=== PATIENT | male | born 1950 | race Caucasian/White ===

== ENCOUNTER 2019-04-02 18:55 | Inpatient (IN) | payer OTHER, MEDICARE ==
--- NOTE | 2019-04-02 20:24 | PDOC ---
Documentation entered by Elizabeth Loco SCRIBE, acting as scribe for Hadley Cruz MD. Hadley Cruz MD: This documentation has been prepared by the scribe, Elizabeth Loco SCRIBE, under my direction and personally reviewed by me in its entirety. I confirm that the documentation accurately reflects all work, treatment, procedures, and medical decision making performed by me. History of Present Illness - General Chief Complaint: Lightheaded Stated Complaint: DIZZY AFTER TAKING SEPTRA DS History Source: Patient Exam Limitations: No Limitations - History of Present Illness Initial Comments: 04/02/19 20:20 The patient is a 69-year-old male with no reported past medical history who presents to the emergency department with dizziness weakness. The patient is s/ p a cystoscopy two days ago with Dr. Gaitan at [facility] for evaluation of hematuria. The patient reports he was prescribed Bactrim after the procedure and was discharged home. Today, patient reports he has had lightheadedness and weakness with difficulty standing. The patients neighbor is at the bedside, who reports the patient seems slow but is otherwise behaving at his baseline. The patient reports associated symptoms of feeling warm this afternoon but did not take his temperature at home. Pt denies weakness/numbness in any extremity, denies PICKARD. Denies CP/SOB. Denies N /V/D. Allergies: bacitracin Surgical history: prostatectomy (10 years ago). Urologist: Dr. Gaitan Past History - Past Medical History Allergies/Adverse Reactions: Allergies Allergy/AdvReac Type Severity Reaction Status Date / Time bacitracin Allergy Intermediate Rash Verified 04/02/19 19:00 Home Medications: Ambulatory Orders Sulfamethoxazole/Trimethoprim [Sulfamethoxazole-Tmp Ds Tablet] 1 tab PO BID Review of Systems - Review of Systems Able to Perform ROS?: Yes Comments:: 04/02/19 20:21 GENERAL/CONSTITUTIONAL: No fever or chills. + weakness. HEAD, EYES, EARS, NOSE AND THROAT: No ear pain or discharge. No sore throat. CARDIOVASCULAR: +lightheadedness, No chest pain, no shortness of breath, no loss of consciousness RESPIRATORY: No cough, wheezing, or hemoptysis. GASTROINTESTINAL: No nausea, vomiting, diarrhea or constipation. GENITOURINARY: No dysuria, frequency, or change in urination. MUSCULOSKELETAL: No joint or muscle swelling or pain. No neck or back pain. SKIN: No rash NEUROLOGIC: No vertigo, no change in strength/sensation. ENDOCRINE: No increased thirst. No abnormal weight change. HEMATOLOGIC/LYMPHATIC: No anemia, easy bleeding, or history of blood clots. ALLERGIC/IMMUNOLOGIC: No hives or skin allergy. *Physical Exam - Physical Exam 04/02/19 20:23 GENERAL: Awake, alert, and fully oriented, in no acute distress. HEAD: No signs of trauma EYES: PERRLA, EOMI, sclera anicteric, conjunctiva clear ENT: Auricles normal inspection, hearing grossly normal, nares patent, oropharynx clear without exudates. Moist mucosa NECK: Nontender, no stepoffs, Normal ROM, supple, no lymphadenopathy, JVD, or masses LUNGS: Breath sounds equal, clear to auscultation bilaterally. No wheezes, and no crackles HEART: Regular rate and rhythm, normal S1 and S2, no murmurs, rubs or gallops ABDOMEN: Soft, nontender, normoactive bowel sounds. No guarding, no rebound. No masses EXTREMITIES: Normal range of motion, no edema. No clubbing or cyanosis. No cords , erythema, or tenderness NEUROLOGICAL: Cranial nerves II through XII intact. 5/5 strength and sensation in all extremities, Normal speech, normal gait, normal cerebellar function SKIN: Warm, Dry, normal turgor, no rashes or lesions noted. ED Treatment Course - LABORATORY CBC & Chemistry Diagram: 04/02/19 20:15 04/02/19 20:15 Medical Decision Making - Medical Decision Making 04/02/19 20:30 69 M with subjective fever, weakness, lightheadedness after cystoscopy 2 days ago. Pt with borderline temp and mild tachycardia. Suspect UTI. - Labs - UA, UCx Discharge - Discharge Information Problems reviewed: Yes Clinical Impression/Diagnosis: UTI (urinary tract infection) Condition: Stable - Admission Yes - Follow up/Referral Referrals: Eula Kapadia MD [Primary Care Provider] - - Patient Discharge Instructions - Post Discharge Activity
[2019-04-02 20:37] LABS: ALBUMIN 3.7 g/dl (3.4-5.0); BILIRUBIN,TOTAL 0.7 mg/dl (0.2-1); CALCIUM 8.8 mg/dl (8.5-10); CREATININE 1.2 mg/dl (0.55-1.3); POTASSIUM 3.8 mmol/L (3.5-5.1); TOT PROT 6.6 g/dl (6.4-8.2)
[2019-04-02 20:39] LABS: HEMATOCRIT 37.3 % (35.4-49); HEMOGLOBIN 11.8 GM/dl (11.7-16.9); MCH 22.2 pg (25.7-33.7); MCHC 31.7 g/dl (32.0-35.9); MEAN CELL VOLUME 70.2 fl (80-96); MEAN PLT VOLUME 8.3 fl (7.5-11.1); PLATELET COUNT 274 K/MM3 (134-434); RBC 5.31 M/mm3 (4.00-5.60); RDW 14.2 % (11.9-15.9); WHITE BLOOD COUNT 13.5 K/mm3 (4.0-10.8)
[2019-04-02] MEDS ORDERED: SODIUM CHLORIDE 1,000 ML IV STA (20:42)
[2019-04-02] MEDS ORDERED: CEFTRIAXONE 1,000 MG in DEXTROSE 5%-WATER - 50 ML IVPB ONE (20:42)
[2019-04-02] MEDS ORDERED: cefTRIAXone SODIUM 1 GM VIAL ONE (20:48)
--- NOTE | 2019-04-02 21:55 | HP ---
CHIEF COMPLAINT: Weakness Urology: Dr. Gaitan, [place] HISTORY OF PRESENT ILLNESS: The patient is a 69-year-old male with no reported past medical history who presents to the emergency department with dizziness and weakness. The patient underwent cystoscopy two days ago with Dr. Gaitan at [facility] for evaluation of hematuria. He was prescribed Bactrim after the procedure and was discharged home. Today, patient reports he has had lightheadedness and weakness with difficulty standing. He felt warm this afternoon but did not take his temperature. ER course was notable for: (1) WBC 13.5 (2) Na 129 (3) NS x 1L; ceftriaxone x 1 Recent Travel: No PAST MEDICAL HISTORY: None reported PAST SURGICAL HISTORY: Cystoscopy 03/31/19 Prostatectomy x 10 years Social History: lives alone Smoking: no Alcohol: no Drugs: no Allergies bacitracin Allergy (Intermediate, Verified 04/02/19 19:00) Rash HOME MEDICATIONS: Home Medications Medication Instructions Recorded Sulfamethoxazole/Trimethoprim 1 tab PO BID 04/02/19 [Sulfamethoxazole-Tmp Ds Tablet] REVIEW OF SYSTEMS CONSTITUTIONAL: +subjective fever, generalized weakness Absent: chills, diaphoresis, loss of appetite, weight change HEENT: Absent: rhinorrhea, nasal congestion, throat pain, throat swelling, difficulty swallowing, mouth swelling, ear pain, eye pain, visual changes CARDIOVASCULAR: Absent: chest pain, syncope, palpitations, irregular heart rate, lightheadedness , peripheral edema RESPIRATORY: Absent: cough, shortness of breath, dyspnea with exertion, orthopnea, wheezing, stridor, hemoptysis GASTROINTESTINAL: Absent: abdominal pain, abdominal distension, nausea, vomiting, diarrhea, constipation, melena, hematochezia GENITOURINARY: +hematuria Absent: dysuria, frequency, urgency, hesitancy, hematuria, flank pain, genital pain MUSCULOSKELETAL: Absent: myalgia, arthralgia, joint swelling, back pain, neck pain SKIN: Absent: rash, itching, pallor HEMATOLOGIC/IMMUNOLOGIC: Absent: easy bleeding, easy bruising, lymphadenopathy, frequent infections ENDOCRINE: Absent: unexplained weight gain, unexplained weight loss, heat intolerance, cold intolerance NEUROLOGIC: Absent: headache, focal weakness or paresthesias, dizziness, unsteady gait, seizure, mental status changes, bladder or bowel incontinence PSYCHIATRIC: Absent: anxiety, depression, suicidal or homicidal ideation, hallucinations. PHYSICAL EXAMINATION Vital Signs - 24 hr 01/29/20 18:56 Temperature 99.2 F Pulse Rate 100 H Respiratory 18 Rate Blood Pressure 103/70 O2 Sat by Pulse 100 Oximetry (%) GENERAL: Awake, alert, and fully oriented, in no acute distress. HEAD: Normal with no signs of trauma. EYES: Pupils equal, round and reactive to light, extraocular movements intact, sclera anicteric, conjunctiva clear. LUNGS: Breath sounds equal, clear to auscultation bilaterally. No wheezes, and no crackles. No accessory muscle use. HEART: Regular rate and rhythm, normal S1 and S2 ABDOMEN: Soft, nontender, not distended MUSCULOSKELETAL: Normal range of motion at all joints. No bony deformities or tenderness. No CVA tenderness. UPPER EXTREMITIES: 2+ pulses, warm, well-perfused. No cyanosis. No clubbing. No peripheral edema. LOWER EXTREMITIES: 2+ pulses, warm, well-perfused. No calf tenderness. No peripheral edema. NEUROLOGICAL: Cranial nerves II-XII intact. Normal speech. Laboratory Results - last 24 hr 04/02/19 04/02/19 04/02/19 20:00 20:15 20:15 WBC 13.5 H RBC 5.31 Hgb 11.8 Hct 37.3 MCV 70.2 L MCH 22.2 L MCHC 31.7 L RDW 14.2 Plt Count 274 MPV 8.3 Absolute Neuts (auto) 12.9 Neutrophils % No Result Required. Lymphocytes % No Result Required. Sodium 129 L Potassium 3.8 Chloride 94 L Carbon Dioxide 24 Anion Gap 11 BUN 27.0 H Creatinine 1.2 Est GFR (CKD-EPI)AfAm 70.09 Est GFR (CKD-EPI)NonAf 60.47 Random Glucose 132 H Calcium 8.8 Total Bilirubin 0.7 AST 13 L ALT 27 Alkaline Phosphatase 51 Total Protein 6.6 Albumin 3.7 Urine Color Yellow Urine Appearance Clear Urine pH 5.5 Urine Protein 1+ H Urine Glucose (UA) Negative Urine Ketones Trace Urine Blood 2+ H Urine Nitrite Negative Urine Bilirubin Negative Urine Urobilinogen 0.2 Ur Leukocyte Esterase Negative ASSESSMENT/PLAN: 69-year-old male with no reported significant PMH, admitted for sepsis secondary to UTI and hyponatremia. Sepsis secondary to UTI --p100, WBC 13.5, pyuria in setting of cystoscopy x 2 days --ceftriaxone (day #1) --fluid resuscitated 1L in ED, continue IV fluids --lactic acid pending --cultures pending Hyponatremia --Na 129 on admission --IV fluids FEN Fluids: NS@100mL/hr Electrolytes: replete as indicated Nutrition: regular diet DVT prophylaxis: subq heparin Physical therapy Dispo: continues to require inpatient care. Full code. Visit type - Emergency Visit Emergency Visit: Yes ED Registration Date: 04/02/19 Care time: The patient presented to the Emergency Department on the above date and was hospitalized for further evaluation of their emergent condition. - New Patient This patient is new to me today: Yes Date on this admission: 04/04/19 - Critical Care Critical Care patient: No
[2019-04-02 22:09] LABS: ANISOCYTOSIS 1+; PLATELET ESTIMATE ADEQUATE
[2019-04-02] MEDS ORDERED: SODIUM CHLORIDE 1,000 ML IV SCH ×2 (22:30→22:40)
[2019-04-03 00:13] VITALS: BMI 17.9
--- NOTE | 2019-04-03 07:31 | PN ---
Physical Exam: SUBJECTIVE: Patient seen and examined OBJECTIVE: Vital Signs Period Temp Pulse Resp BP Sys/Obrien Pulse Ox Last 24 Hr 97.9 F-99.8 F 88-106 16-18 95-114/52-70 67-100 GENERAL: Awake, alert, and fully oriented, in no acute distress. LUNGS: Breath sounds equal, clear to auscultation bilaterally. No wheezes, and no crackles. No accessory muscle use. HEART: Regular rate and rhythm, normal S1 and S2 ABDOMEN: Soft, nontender, not distended MUSCULOSKELETAL: Normal range of motion at all joints. No bony deformities or tenderness. No CVA tenderness. UPPER EXTREMITIES: 2+ pulses, warm, well-perfused. No cyanosis. No clubbing. No peripheral edema. LOWER EXTREMITIES: 2+ pulses, warm, well-perfused. No calf tenderness. No peripheral edema. NEUROLOGICAL: Cranial nerves II-XII intact. Normal speech. SKIN: Psoriatic plaques on scalp Laboratory Results - last 24 hr 04/02/19 04/02/19 04/02/19 20:00 20:15 20:15 WBC 13.5 H RBC 5.31 Hgb 11.8 Hct 37.3 MCV 70.2 L MCH 22.2 L MCHC 31.7 L RDW 14.2 Plt Count 274 MPV 8.3 Absolute Neuts (auto) 12.9 Neutrophils % No Result Required. Neutrophils % (Manual) 94.0 H* Lymphocytes % No Result Required. Lymphocytes % (Manual) 3.0 L Monocytes % (Manual) 2 L Eosinophils % (Manual) 1.0 Hypochromia 2+ Platelet Estimate Adequate Anisocytosis 1+ Microcytosis 1+ Sodium 129 L Potassium 3.8 Chloride 94 L Carbon Dioxide 24 Anion Gap 11 BUN 27.0 H Creatinine 1.2 Est GFR (CKD-EPI)AfAm 70.09 Est GFR (CKD-EPI)NonAf 60.47 Random Glucose 132 H Lactic Acid Calcium 8.8 Total Bilirubin 0.7 AST 13 L ALT 27 Alkaline Phosphatase 51 Total Protein 6.6 Albumin 3.7 Urine Color Yellow Urine Appearance Clear Urine pH 5.5 Urine Protein 1+ H Urine Glucose (UA) Negative Urine Ketones Trace Urine Blood 2+ H Urine Nitrite Negative Urine Bilirubin Negative Urine Urobilinogen 0.2 Ur Leukocyte Esterase Negative Urine RBC 15-30 Urine WBC 2-5 Urine Bacteria Few 04/03/19 00:05 WBC RBC Hgb Hct MCV MCH MCHC RDW Plt Count MPV Absolute Neuts (auto) Neutrophils % Neutrophils % (Manual) Lymphocytes % Lymphocytes % (Manual) Monocytes % (Manual) Eosinophils % (Manual) Hypochromia Platelet Estimate Anisocytosis Microcytosis Sodium Potassium Chloride Carbon Dioxide Anion Gap BUN Creatinine Est GFR (CKD-EPI)AfAm Est GFR (CKD-EPI)NonAf Random Glucose Lactic Acid 2.8 H* Calcium Total Bilirubin AST ALT Alkaline Phosphatase Total Protein Albumin Urine Color Urine Appearance Urine pH Urine Protein Urine Glucose (UA) Urine Ketones Urine Blood Urine Nitrite Urine Bilirubin Urine Urobilinogen Ur Leukocyte Esterase Urine RBC Urine WBC Urine Bacteria Active Medications Generic Name Dose Route Start Last Admin Trade Name Freq PRN Reason Stop Dose Admin Heparin Sodium (Porcine) 5,000 unit 04/03/19 10:00 Heparin - SQ BID LOUIS Sodium Chloride 1,000 mls @ 100 mls/hr 04/02/19 22:40 04/02/19 22:57 Normal Saline - IV 100 mls/hr ASDIR LOUIS Administration Ceftriaxone Sodium 50 mls @ 100 mls/hr 04/03/19 10:00 Ceftriaxone 1 [id number] Bag IVPB DAILY LOUIS Protocol ASSESSMENT/PLAN: 69-year-old male with no reported significant PMH, admitted for sepsis secondary to UTI and hyponatremia. Severe sepsis secondary to UTI --p100, WBC 13.5, lactic acid 2.8, pyuria in setting of cystoscopy x 2 days - -present on admission --leukocytosis now resolved, afebrile, lactic acid wnl --ceftriaxone (day #2) Hyponatremia --improved FEN Fluids: NS@100mL/hr Electrolytes: replete as indicated Nutrition: regular diet DVT prophylaxis: subq heparin Physical therapy Dispo: continues to require inpatient care. Full code. Visit type - Emergency Visit Emergency Visit: Yes ED Registration Date: 04/02/19 Care time: The patient presented to the Emergency Department on the above date and was hospitalized for further evaluation of their emergent condition. - New Patient This patient is new to me today: No - Critical Care Critical Care patient: No
[2019-04-03 08:23] LABS: ALBUMIN 3.1 g/dl (3.4-5.0); BILIRUBIN,TOTAL 0.9 mg/dl (0.2-1); CALCIUM 8.1 mg/dl (8.5-10); CREATININE 0.8 mg/dl (0.55-1.3); MAGNESIUM 1.8 mg/dL (1.8-2.4); POTASSIUM 3.7 mmol/L (3.5-5.1); TOT PROT 5.4 g/dl (6.4-8.2)
[2019-04-03 08:25] LABS: BASO % 0.3 % (0-2.0); EOS % 1.2 % (0-4.5); HEMATOCRIT 33.9 % (35.4-49); HEMOGLOBIN 10.9 GM/dl (11.7-16.9); LYMPH % 5.6 % (8-40); MCH 22.9 pg (25.7-33.7); MCHC 32.1 g/dl (32.0-35.9); MEAN CELL VOLUME 71.4 fl (80-96); MEAN PLT VOLUME 8.7 fl (7.5-11.1); MONO % 6.7 % (3.8-10.2); NEUT % 86.2 % (42.8-82.8); PLATELET COUNT 224 K/MM3 (134-434); RBC 4.75 M/mm3 (4.00-5.60); RDW 14.3 % (11.9-15.9); WHITE BLOOD COUNT 9.8 K/mm3 (4.0-10.8)
[2019-04-03] MEDS ORDERED: CEFTRIAXONE 1 GM in DEXTROSE 5%-WATER - 50 ML IVPB SCH (10:00)
[2019-04-03] MEDS: HEPARIN NA (PORCINE) 5,000 UNITS/ML 1ML VIAL SQ SCH ×2 (10:00→21:17)
[2019-04-03] MEDS: CEFTRIAXONE 1 G/50 ML PREMIX 50 ML IVPB SCH (10:20)
--- NOTE | 2019-04-03 12:43 | EKG ---
Test Reason : Blood Pressure : / mmHG Vent. Rate : 088 BPM Atrial Rate : 088 BPM P-R Int : 176 ms QRS Dur : 108 ms QT Int : 374 ms P-R-T Axes : 027 -11 031 degrees QTc Int : 452 ms NORMAL SINUS RHYTHM INCOMPLETE LEFT BUNDLE BRANCH BLOCK BORDERLINE ECG NO PREVIOUS ECGS AVAILABLE Confirmed by PRIYANKA MARTINEZ MD ([id number]) on 04/03/2019 12:42:41 PM Referred By: NC Confirmed By:PRIYANKA MARTINEZ MD
[2019-04-04 06:41] VITALS: BP 111/56; PULSE 96; TEMP 97.8
[2019-04-04 07:44] LABS: BASO % 0.4 % (0-2.0); HEMATOCRIT 37.9 % (35.4-49); HEMOGLOBIN 11.7 GM/dl (11.7-16.9); LYMPH % 15.8 % (8-40); MCH 21.9 pg (25.7-33.7); MCHC 30.8 g/dl (32.0-35.9); MEAN PLT VOLUME 8.6 fl (7.5-11.1); MONO % 11.2 % (3.8-10.2); NEUT % 66.6 % (42.8-82.8); PLATELET COUNT 237 K/MM3 (134-434); RBC 5.33 M/mm3 (4.00-5.60); RDW 14.6 % (11.9-15.9); WHITE BLOOD COUNT 6.3 K/mm3 (4.0-10.8)
--- NOTE | 2019-04-04 08:26 | DS ---
Physical Exam: SUBJECTIVE: Patient seen and examined OBJECTIVE: Vital Signs Period Temp Pulse Resp BP Sys/Obrien Pulse Ox Last 24 Hr 97.8 F-99.5 F 87-102 16-19 101-115/54-69 95-99 PHYSICAL EXAM GENERAL: Awake, alert, and fully oriented, in no acute distress. LUNGS: Breath sounds equal, clear to auscultation bilaterally. No wheezes, and no crackles. No accessory muscle use. HEART: Regular rate and rhythm, normal S1 and S2 ABDOMEN: Soft, nontender, not distended MUSCULOSKELETAL: Normal range of motion at all joints. No bony deformities or tenderness. No CVA tenderness. UPPER EXTREMITIES: 2+ pulses, warm, well-perfused. No cyanosis. No clubbing. No peripheral edema. LOWER EXTREMITIES: 2+ pulses, warm, well-perfused. No calf tenderness. No peripheral edema. NEUROLOGICAL: Cranial nerves II-XII intact. Normal speech. SKIN: Psoriatic plaques on scalp LABS Laboratory Results - last 24 hr 04/03/19 04/03/19 04/03/19 07:15 07:29 07:29 WBC 9.8 RBC 4.75 Hgb 10.9 L Hct 33.9 L MCV 71.4 L MCH 22.9 L MCHC 32.1 RDW 14.3 Plt Count 224 MPV 8.7 Absolute Neuts (auto) 8.5 Neutrophils % 86.2 H Lymphocytes % 5.6 L Monocytes % 6.7 Eosinophils % 1.2 Basophils % 0.3 Sodium 133 L Potassium 3.7 Chloride 104 Carbon Dioxide 23 Anion Gap 6 L BUN 20.0 H Creatinine 0.8 Est GFR (CKD-EPI)AfAm 104.17 Est GFR (CKD-EPI)NonAf 89.88 Random Glucose 102 Lactic Acid 1.1 Calcium 8.1 L Magnesium 1.8 Total Bilirubin 0.9 AST 16 ALT 22 Alkaline Phosphatase 45 Total Protein 5.4 L Albumin 3.1 L 04/04/19 04/04/19 06:59 06:59 WBC 6.3 RBC 5.33 Hgb 11.7 Hct 37.9 MCV 71.0 L MCH 21.9 L MCHC 30.8 L RDW 14.6 Plt Count 237 MPV 8.6 Absolute Neuts (auto) 4.2 Neutrophils % 66.6 D Lymphocytes % 15.8 D Monocytes % 11.2 H Eosinophils % 6.0 H D Basophils % 0.4 Sodium Potassium Chloride Carbon Dioxide Anion Gap BUN Creatinine Est GFR (CKD-EPI)AfAm Est GFR (CKD-EPI)NonAf Random Glucose Lactic Acid Calcium Magnesium 1.8 Total Bilirubin AST ALT Alkaline Phosphatase Total Protein Albumin HOSPITAL COURSE: Date of Admission:04/02/19 Date of Discharge: 04/04/19 Pre hospital course The patient is a 69-year-old male with no reported past medical history who presents to the emergency department with dizziness and weakness. The patient underwent cystoscopy two days ago with Dr. Gaitan at [place] for evaluation of hematuria. He was prescribed Bactrim after the procedure and was discharged home. Today, patient reports he has had lightheadedness and weakness with difficulty standing. He felt warm this afternoon but did not take his temperature. ER course (1) WBC 13.5 (2) Na 129 (3) NS x 1L; ceftriaxone x 1 Subsequent hospital course 69-year-old male with no reported significant PMH, admitted for sepsis secondary to UTI and hyponatremia. Severe sepsis secondary to UTI --p100, WBC 13.5, lactic acid 2.8, pyuria in setting of cystoscopy x 2 days - -present on admission --treated with ceftriaxone x 3 days, discharged on augmentin to complete 10 days of treatment Hyponatremia --resolved after IV fluids Minutes to complete discharge: 35 Discharge Summary Problems reviewed: Yes Reason For Visit: URINARY TRACT INFECTION. Condition: Critical - Instructions Diet, Activity, Other Instructions: A prescription has been sent to your pharmacy for augmentin. Take this medication as directed and be sure to finish all the medication. You should follow up with your primary care provider, or with your urologist, within one week of your discharge. Return to the emergency department for any new or worsening symptoms. Referrals: Eula Kapadia MD [Primary Care Provider] - Disposition: HOME - Home Medications Comprehensive Discharge Medication List: Ambulatory Orders Sulfamethoxazole/Trimethoprim [Sulfamethoxazole-Tmp Ds Tablet] 1 tab PO BID This patient is new to me today: No Emergency Visit: Yes ED Registration Date: 04/02/19 Care time: The patient presented to the Emergency Department on the above date and was hospitalized for further evaluation of their emergent condition. Critical Care patient: No - Discharge Referral Referred to [facility] Med P.C.: No
[2019-04-04] MEDS: CEFTRIAXONE 1 G/50 ML PREMIX 50 ML IVPB SCH (09:10)
[2019-04-04] MEDS: HEPARIN NA (PORCINE) 5,000 UNITS/ML 1ML VIAL SQ SCH (09:10)
== END 2019-04-04 12:24 | disposition home or self-care (01) | DRG 872 ==
LOC: FER 18:55 → SUPCPDRO 18:55 → FM/S 23:04
PROVIDERS: ADMIT Internal Medicine; ATTEND Nurse Practitioner Acute Care
DX: A41.9 Sepsis, unspecified organism (principal); N39.0 Urinary tract infection, site not specified; E87.1 Hypo-osmolality and hyponatremia
CPT/HCPCS: 36415; 71045-TC-FY; 80053; 81003; 81015; 83605; 83735; 85025; 85027; 87040; 87086; 93005; 97116-GP; 97162-GP; 99283-25; J1644; J7030